=== PATIENT | female | born 1955 | race Two or more races ===

== ENCOUNTER 2018-01-03 11:04 | Emergency (ER) | payer MEDICAID, OTHER ==
[2018-01-03 11:19] VITALS: BMI 27.2
[2018-01-03 11:21] VITALS: RESP 20
[2018-01-03] MEDS ORDERED: Sodium Chloride 0.9% 1,000 ML IV STA (11:52)
[2018-01-03 12:37] LABS: BASO % 0.5 % (0.0-2.0); EOS # 0.1 K/uL (0.0-0.7); EOS % 1.2 % (0.0-4.0); HEMOGLOBIN 13.7 g/dL (11.0-16.0); LYMPH # 2.8 K/uL (1.0-4.3); LYMPH % 35.2 % (20.0-40.0); MEAN CELL VOLUME 89.7 fL (81.0-99.0); MEAN CORPUSCULAR HEMOGLOBIN 30.8 pg (27.0-31.0); MEAN CORPUSCULAR HGB CONC 34.4 g/dL (33.0-37.0); MEAN PLATELET VOLUME 8.6 fL (7.2-11.7); MONO # 0.6 K/uL (0.0-0.8); MONO % 7.5 % (0.0-10.0); NEUT # 4.5 K/uL (1.8-7.0); NEUT % 55.6 % (50.0-75.0); NRBC % 0.1 % (0.0-2.0); RBC 4.43 Mil/uL (3.80-5.20); RED CELL DISTRIBUTION WIDTH 13.3 % (11.5-14.5); WHITE BLOOD COUNT 8.1 K/uL (4.8-10.8)
[2018-01-03 12:45] LABS: ALB/GLOB RATIO 1.2 (1.0-2.1); ALBUMIN 4.6 g/dL (3.5-5.0); ALT/SGPT 35 U/L (9-52); AST/SGOT 35 U/L (14-36); BLOOD UREA NITROGEN 13 mg/dL (7-17); CALCIUM 9.4 mg/dl (8.6-10.4); GFR AFRICAN-AMERICAN > 60; GFR NON-AFRICAN AMERICAN > 60
[2018-01-03] MEDS ORDERED: Iodixanol 320 MG/ML 100 ML BOTTLE IV ONE (13:28)
--- NOTE | 2018-01-03 14:00 | C.PDOC ---
History Of Present Illness 62 y/o female presents to the ED complaining of multiple lumps to her left neck and upper back, initially noticed about 1 month ago. Patient complains they are tender to touch, and cause discomfort when lying in certain positions. She denies any SOB, weight loss, or fever. Time Seen by Provider: 01/03/18 11:48 Chief Complaint (Nursing): Abnormal Skin Integrity History Per: Patient History/Exam Limitations: no limitations Onset/Duration Of Symptoms: Days Current Symptoms Are (Timing): Still Present Past Medical History Reviewed: Historical Data, Nursing Documentation, Vital Signs Vital Signs: Last Vital Signs Temp 98.8 F 01/03/18 14:37 Pulse 67 01/03/18 14:37 Resp 20 01/03/18 14:37 BP 176/82 H 01/03/18 14:37 Pulse Ox 98 01/03/18 14:40 - Medical History PMH: HTN Denies: Chronic Kidney Disease Other Surgeries: Hysterectomy, Left breast cyst removal - [facility] Procedures LAPAROSCOPIC CHOLECYSTECTOMY (04/08/14) Family History: States: Unknown Family Hx - Social History Hx Tobacco Use: No Hx Alcohol Use: No Hx Substance Use: No - Immunization History Hx Influenza Vaccination: Yes Hx Pneumococcal Vaccination: No Review Of Systems Except As Marked, All Systems Reviewed And Found Negative. Constitutional: Negative for: Fever, Weight loss Respiratory: Negative for: Shortness of Breath Skin: Positive for: Other (Lumps to left neck and upper back) Physical Exam - Physical Exam Appears: Non-toxic, No Acute Distress Skin: Warm, Dry, Other (Large 6 cm lump to mid upper back, soft, mobile, appears consistent with lipoma; no surrounding erythema, drainage, or skin changes) Head: Atraumatic, Normacephalic Eye(s): bilateral: Normal Inspection, PERRL, EOMI Oral Mucosa: Moist Neck: Normal ROM, Other (multiple tender lumps to left lateral submandibular region) Cardiovascular: Rhythm Regular, No Murmur Respiratory: Normal Breath Sounds, No Rales, No Rhonchi, No Wheezing Extremity: Bilateral: Atraumatic, Normal Color And Temperature Neurological/Psych: Oriented x3, Normal Speech ED Course And Treatment - Laboratory Results Result Diagrams: 01/03/18 12:29 01/03/18 12:29 O2 Sat by Pulse Oximetry: 98 (RA) Pulse Ox Interpretation: Normal - CT Scan/US CT neck soft tissue Other Rad Studies (CT/US): Read By Radiologist, Radiology Report Reviewed CT/US Interpretation: Accession No. : [id number]. Patient Name / ID : JULIO CESAR MARTINEZ / [id number]. Exam Date : 01/03/2018 13:39:40 ( Approved ). Study Comment : Sex / Age : F / 62Y. Creator : Kassandra Macias. Dictator : Lance Winter MD. [employer] Exchange Architect : Activities Therapist : Lance Winter MD. Approver2 : Report Date : 01/03/2018 13:57:33. My Comment : . PROCEDURE: CT scan neck dated 01/03/2018. HISTORY: Lumps left lateral neck and upper back. TECHNIQUE: Contiguous helical/ transaxial sections of the neck with intravenous contrast. Coronal and sagittal reformats generated. . Note that the small BB markers were placed at sites of perceived along the left lateral upper neck region. Intravenous contrast dose: 40 cc Visipaque 320. Radiation dose: DLP 354.32 mGy-cm. This CT exam was performed using one or more of the following dose reduction techniques: Automated exposure control, adjustment of the mA and/or kV according to patient size, and/or use of iterative reconstruction technique. . FINDINGS: The current study reveals no large cervical masses or collections. . Small BB marker seen attached to the skin surface in the left lateral upper neck region just subjacent to the inferior aspect of the left parotid gland overlying what appears represent a tiny approximately 5.5 mm lymph node adjacent to the superficial aspect of the left sternocleidomastoid muscle. There are additional small of bilateral cervical lymph nodes within the jugulodigastric, submandibular-submental and posterior cervical spaces none of which appear pathologically enlarged. Largest left jugulodigastric lymph node measures approximately 12.8 mm though contains a fatty center. Largest right-sided jugulodigastric lymph node 12.8 mm also containing a fatty center. . . There appears to be a small elliptical shaped 5 mm soft tissue density in the anterior superior margin left parotid gland that could represent a tiny intra parotid lymph node however other of benign or malignant lesions not completely excluded. Followup CT scan at interval could be performed to assess stability. . The remaining salivary glands unremarkable. There is enlargement of the right lobe thyroid gland which extends inferiorly to the level of the right clavicular head. There is a 2 cm nodule right lobe thyroid gland that exhibits some areas of low attenuation and what may represent internal septations. 2 smaller low-attenuation foci seen more superior and posterior in location. There is also a appear to be at least 2 adjacent elliptical shaped low-attenuation foci in left lobe thyroid gland with a smaller low-attenuation focus slightly more superiorly located. . Followup thyroid ultrasound recommended for further evaluation. The visualized anterior circulation widely patent despite some minor soft and partially calcified plaque changes both carotid bifurcations and proximal internal carotid arteries. Vertebral arteries are patent as well. The oral pharynx appears unremarkable. Mild asymmetry of the vallecular likely due to some encroaching lingual tonsil more so on the right side. Some residual and or retained secretion may contribute. Free margin of the epiglottis unremarkable. The aryepiglottic folds are relatively symmetric as are the pyriform sinus. True vocal cords are symmetric as well. Lung apices clear. Note made of mucous a focus polypoid like mucosal thickening floor left maxillary antrum. IMPRESSION: There are scattered small bilateral cervical lymph nodes none of which appear pathologically enlarged. Small approximately 5 mm lymph node incision just subjacent to the skin surface BB marker that was placed over the area of perceived abnormality as per patient. Low-attenuation lesions within the right and left lobes of the thyroid gland as above. Recommend followup thyroid ultrasound. Small 5 mm soft tissue density within the left parotid gland of uncertain etiology ; rule out the the parotid lymph node. Other benign parotid lesions not excluded. Note that the possibility of a malignant parotid gland lesion also not excluded. . Recommend CT scan follow-up at interval for further evaluation to assess stability. CT chest Other Rad Studies (CT/US): Read By Radiologist, Radiology Report Reviewed CT/US Interpretation: Accession No. : [id number]. Patient Name / ID : JULIO CESAR MARTINEZ / [id number]. Exam Date : 01/03/2018 13:35:47 ( Approved ). Study Comment : Sex / Age : F / 62Y. Creator : Kassandra Macias. Dictator : Ramiro Lisa MD. [employer] Architect : Activities Therapist : Ramiro Lisa MD. Approver2 : Report Date : 01/03/2018 13:57:28. My Comment : . PROCEDURE: CT Chest with contrast. HISTORY: LUMPS ON LT LATERAL NECK AND BACK. COMPARISON: None. TECHNIQUE: Contiguous axial images were obtained through the chest with intravenous contrast enhancement. Sagittal and coronal reconstructions were performed. The examination was performed with a radiopaque cutaneous marker indicating the site of palpable abnormality according to the patient, in the left parasagittal posterior chest wall. IV contrast: 100 mL Visipaque 320. Radiation dose (DLP): 246.54 MGy-cm. This CT exam was performed using one or more of the following dose reduction techniques: Automated exposure control, adjustment of the mA and/or kV according to patient size, and/or use of iterative reconstruction technique. FINDINGS: LUNGS: cluster of small calcified nodules in the posterior right lower lobe, nonspecific. Likely granulomatous. There is a 2 mm calcified granuloma in the right upper lobe on series 3, image 30. There is no other pulmonary mass identified. There is no pulmonary infiltrate. MEDIASTINUM: Unremarkable thoracic aorta. No aneurysm or dissection. Normal sized heart. Main pulmonary artery unremarkable. No vascular congestion. No lymphadenopathy. Bilateral thyroid nodules, 2.9 cm on the right and 1.2 cm on the left. Further evaluation with thyroid ultrasound examination is advised. PLEURA: No pleural fluid. No pneumothorax. BONES: No fracture. No destructive lesion. UPPER ABDOMEN: Calcified splenic granuloma. Status post cholecystectomy. OTHER FINDINGS: There is no cutaneous or subcutaneous soft tissue mass seen corresponding to the radiopaque marker in the region of interest over the left posterior chest wall. IMPRESSION: No chest wall mass identified. Cluster of small nodular calcifications in the posterior right lower lobe as well as granulomatous calcification in the right upper lobe and granulomatous splenic calcification. Likely old granulomatous disease. Multinodular thyroid. Correlate with thyroid ultrasound examination. No additional abnormality. Progress Note: Basic labs and CT Soft Tissue neck/chest ordered. Labs reviewed, and are unremarkable. CT findings discussed with patient in detail. Disposition - Disposition Referrals: [facility] [Outside] Disposition: HOME/ ROUTINE Disposition Time: 15:20 Condition: STABLE Additional Instructions: Follow up with PMD/Clinic within 1-2 days. Return to ED if feel worse. Prescriptions: Ibuprofen [Motrin Tab] 400 mg PO Q8 #30 tab Instructions: Thyroid Nodules Forms: [employer] (Yi) Print Language: GUATEMALAN - Clinical Impression Clinical Impression: Lymphadenopathy, Thyroid nodule, Soft tissue mass - PA / SALES SUPPORT MANAGER / Resident Statement MD/DO has reviewed & agrees with the documentation as recorded. - Scribe Statement The provider has reviewed the documentation as recorded by the Scribe (Kendra Hernandez) All medical record entries made by the Scribe were at my direction and personally dictated by me. I have reviewed the chart and agree that the record accurately reflects my personal performance of the history, physical exam, medical decision making, and the department course for this patient. I have also personally directed, reviewed, and agree with the discharge instructions and disposition.
--- NOTE | 2018-01-03 14:19 | CT ---
PROCEDURE: CT scan neck dated 01/03/2018 HISTORY: Lumps left lateral neck and upper back TECHNIQUE: Contiguous helical/ transaxial sections of the neck with intravenous contrast. Coronal and sagittal reformats generated. . Note that the small BB markers were placed at sites of perceived along the left lateral upper neck region. Intravenous contrast dose: 40 cc Visipaque 320 Radiation dose: DLP 354.32 mGy-cm This CT exam was performed using one or more of the following dose reduction techniques: Automated exposure control, adjustment of the mA and/or kV according to patient size, and/or use of iterative reconstruction technique. . FINDINGS: The current study reveals no large cervical masses or collections. . Small BB marker seen attached to the skin surface in the left lateral upper neck region just subjacent to the inferior aspect of the left parotid gland overlying what appears represent a tiny approximately 5.5 mm lymph node adjacent to the superficial aspect of the left sternocleidomastoid muscle. There are additional small of bilateral cervical lymph nodes within the jugulodigastric, submandibular-submental and posterior cervical spaces none of which appear pathologically enlarged. Largest left jugulodigastric lymph node measures approximately 12.8 mm though contains a fatty center. Largest right-sided jugulodigastric lymph node 12.8 mm also containing a fatty center. . . There appears to be a small elliptical shaped 5 mm soft tissue density in the anterior superior margin left parotid gland that could represent a tiny intra parotid lymph node however other of benign or malignant lesions not completely excluded. Followup CT scan at interval could be performed to assess stability. . The remaining salivary glands unremarkable. There is enlargement of the right lobe thyroid gland which extends inferiorly to the level of the right clavicular head. There is a 2 cm nodule right lobe thyroid gland that exhibits some areas of low attenuation and what may represent internal septations. 2 smaller low-attenuation foci seen more superior and posterior in location. There is also a appear to be at least 2 adjacent elliptical shaped low-attenuation foci in left lobe thyroid gland with a smaller low-attenuation focus slightly more superiorly located. . Followup thyroid ultrasound recommended for further evaluation. The visualized anterior circulation widely patent despite some minor soft and partially calcified plaque changes both carotid bifurcations and proximal internal carotid arteries. Vertebral arteries are patent as well. The oral pharynx appears unremarkable. Mild asymmetry of the vallecular likely due to some encroaching lingual tonsil more so on the right side. Some residual and or retained secretion may contribute. Free margin of the epiglottis unremarkable. The aryepiglottic folds are relatively symmetric as are the pyriform sinus. True vocal cords are symmetric as well Lung apices clear. Note made of mucous a focus polypoid like mucosal thickening floor left maxillary antrum IMPRESSION: There are scattered small bilateral cervical lymph nodes none of which appear pathologically enlarged. Small approximately 5 mm lymph node incision just subjacent to the skin surface BB marker that was placed over the area of perceived abnormality as per patient. Low-attenuation lesions within the right and left lobes of the thyroid gland as above. Recommend followup thyroid ultrasound. Small 5 mm soft tissue density within the left parotid gland of uncertain etiology ; rule out the the parotid lymph node. Other benign parotid lesions not excluded. Note that the possibility of a malignant parotid gland lesion also not excluded. . Recommend CT scan follow-up at interval for further evaluation to assess stability.
--- NOTE | 2018-01-03 14:35 | CT ---
PROCEDURE: CT Chest with contrast HISTORY: LUMPS ON LT LATERAL NECK AND BACK COMPARISON: None. TECHNIQUE: Contiguous axial images were obtained through the chest with intravenous contrast enhancement. Sagittal and coronal reconstructions were performed. The examination was performed with a radiopaque cutaneous marker indicating the site of palpable abnormality according to the patient, in the left parasagittal posterior chest wall. IV contrast: 100 mL Visipaque 320 Radiation dose (DLP): 246.54 MGy-cm. This CT exam was performed using one or more of the following dose reduction techniques: Automated exposure control, adjustment of the mA and/or kV according to patient size, and/or use of iterative reconstruction technique. FINDINGS: LUNGS: cluster of small calcified nodules in the posterior right lower lobe, nonspecific. Likely granulomatous. There is a 2 mm calcified granuloma in the right upper lobe on series 3, image 30. There is no other pulmonary mass identified. There is no pulmonary infiltrate. MEDIASTINUM: Unremarkable thoracic aorta. No aneurysm or dissection. Normal sized heart. Main pulmonary artery unremarkable. No vascular congestion. No lymphadenopathy. Bilateral thyroid nodules, 2.9 cm on the right and 1.2 cm on the left. Further evaluation with thyroid ultrasound examination is advised. PLEURA: No pleural fluid. No pneumothorax. BONES: No fracture. No destructive lesion. UPPER ABDOMEN: Calcified splenic granuloma. Status post cholecystectomy. OTHER FINDINGS: There is no cutaneous or subcutaneous soft tissue mass seen corresponding to the radiopaque marker in the region of interest over the left posterior chest wall. IMPRESSION: No chest wall mass identified. Cluster of small nodular calcifications in the posterior right lower lobe as well as granulomatous calcification in the right upper lobe and granulomatous splenic calcification. Likely old granulomatous disease. Multinodular thyroid. Correlate with thyroid ultrasound examination. No additional abnormality.
[2018-01-03 14:38] VITALS: BP 176/82; PULSE 67; TEMP 98.8
[2018-01-03 14:39] VITALS: O2SAT 98
== END 2018-01-03 15:46 | disposition home or self-care (01) ==
LOC: C.ER 11:04
DX: R59.1 Generalized enlarged lymph nodes (principal); E04.1 Nontoxic single thyroid nodule
CPT/HCPCS: 70491; 71260; 80053; 85025; 96360; 99283; J7040; Q9967